=== PATIENT | female | born 1975 | race Caucasian/White ===

== ENCOUNTER → 2020-05-05 | Outpatient (CLI) | payer MEDICAID | END | disposition home or self-care (01) | LOC: COVID19 14:39 | PROVIDERS: ATTEND Internal Medicine | DX: Z20.828 Contact with and (suspected) exposure to other viral communicable diseases (principal) ==

== ENCOUNTER 2021-04-17 15:47 | Emergency (ER) | payer BC ==
[~2021-04-17] VITALS: Ht 170.1 cm; Wt 63.5 kg
== END 2021-04-17 16:34 | disposition home or self-care (01) ==
LOC: ED 15:47
DX: G89.18 Other acute postprocedural pain (principal); Z90.710 Acquired absence of both cervix and uterus

== ENCOUNTER 2021-09-24 15:55 | Emergency (ER) | payer BC ==
[~2021-09-24] VITALS: Wt 63.5 kg
[2021-09-24] MEDS ORDERED: WELLBUTRIN XL150 MG PO (16:19)
[2021-09-24] MEDS ORDERED: LAMICTAL100 MG PO (16:19)
[2021-09-24] MEDS ORDERED: BUSPIRONE10 MG PO (16:19)
== END 2021-09-24 16:44 | disposition home or self-care (01) ==
LOC: ED 15:55
DX: F41.9 Anxiety disorder, unspecified (principal); Z76.0 Encounter for issue of repeat prescription

== ENCOUNTER 2021-11-28 12:17 | Emergency (ER) | payer BC ==
[~2021-11-28] VITALS: Ht 170.1 cm; Wt 62.6 kg
[~2021-11-28 12:17] MED LIST: BUSPIRONE10 MG PO; HYDROCODONE-AC1 EAC1 PO; LAMICTAL100 MG PO; WELLBUTRIN XL150 MG PO
[2021-11-28 13:16] LABS: BASO % 0.3 % (0.0-1.0); EOS # 0.4 10*3/uL (0.0-0.4); EOS % 5.5 % (1.0-4.0); HEMATOCRIT 40.4 % (37.0-47.0); LYMPH # 1.2 10*3/uL (1.3-4.4); LYMPH % 19.5 % (27.0-41.0); MEAN CORPUSCULAR HGB 29.8 pg (27.0-31.0); MEAN CORPUSCULAR HGB CONC 33.9 g/dl (33.0-37.0); MEAN PLATELET VOLUME 9.4 fl (9.6-12.3); MONO # 0.4 10*3/uL (0.1-1.0); MONO % 5.9 % (3.0-9.0); NEUT # 4.3 10*3/uL (2.3-7.9); NEUT % 68.5 % (47.0-73.0); PLATELET COUNT AUTOMATED 222 10*3/uL (130-400); RED BLOOD COUNT 4.59 10*6/uL (4.10-5.10); RED CELL DISTRI WIDTH 11.8 % (0-14.5); WHITE BLOOD COUNT 6.3 10*3/uL (4.8-10.8)
[2021-11-28] MEDS ORDERED: PREMARIN0.625 M1 PO (13:28)
[2021-11-28] MEDS ORDERED: PROPRANOLOL HCL20 MG PO (13:29)
[2021-11-28 13:32] LABS: ALKALINE PHOSPHATASE 92 U/L (45-117); BUN 9 mg/dl (7-24); CHLORIDE 109 mmol/L (98-107); CREATININE 0.71 mg/dL (0.55-1.02); SGOT/AST 21 IU/L (3-35); SGPT/ALT 24 U/L (12-78); SODIUM 140 mmol/L (136-145); TOTAL PROTEIN 6.6 gm/dL (6.4-8.2)
[2021-11-28] MEDS ORDERED: ZOFRAN4 MG PO (16:20)
== END 2021-11-28 16:22 | disposition home or self-care (01) ==
LOC: ED 12:17
PROVIDERS: Emergency Medicine
DX: B34.9 Viral infection, unspecified (principal); Z20.822 Contact with and (suspected) exposure to COVID-19

== ENCOUNTER 2021-11-29 05:53 | Emergency (ER) | payer BC ==
[~2021-11-29 05:53] MED LIST changes: +PREMARIN0.625 M1 PO; +PROPRANOLOL HCL20 MG PO; +ZOFRAN4 MG PO
[2021-11-30] MEDS ORDERED: KETOROLAC10 MG PO (06:27)
[2021-11-30] MEDS ORDERED: VALTREX1000 MG PO (06:27)
[2021-11-30] MEDS ORDERED: PREDNISONE50 MG PO (06:27)
[2021-11-30] MEDS ORDERED: REGLAN5 MG PO (06:27)
[2021-11-30] MEDS ORDERED: SUMATRIPTAN5 MG NAS (21:54)
== END 2021-11-29 10:21 | disposition home or self-care (01) ==
LOC: ED 05:53
DX: B34.9 Viral infection, unspecified (principal)

== ENCOUNTER 2021-11-30 05:33 | Emergency (ER) | payer BC ==
[2021-11-30] MEDS ORDERED: PREDNISONE50 MG PO (06:27)
[2021-11-30] MEDS ORDERED: REGLAN5 MG PO (06:27)
[2021-11-30] MEDS ORDERED: KETOROLAC10 MG PO (06:27)
[2021-11-30] MEDS ORDERED: VALTREX1000 MG PO (06:27)
[2021-11-30 06:54] LABS: BASO % 0.3 % (0.0-1.0); EOS # 0.1 10*3/uL (0.0-0.4); LYMPH # 1.2 10*3/uL (1.3-4.4); LYMPH % 31.2 % (27.0-41.0); MEAN CELL VOLUME 88.1 fl (81.0-99.0); MEAN PLATELET VOLUME 9.5 fl (9.6-12.3); MONO # 0.2 10*3/uL (0.1-1.0); MONO % 5.8 % (3.0-9.0); NEUT # 2.4 10*3/uL (2.3-7.9); NEUT % 59.7 % (47.0-73.0); PLATELET COUNT AUTOMATED 197 10*3/uL (130-400); RED BLOOD COUNT 4.54 10*6/uL (4.10-5.10); RED CELL DISTRI WIDTH 11.4 % (0-14.5)
[2021-11-30 07:09] LABS: ALKALINE PHOSPHATASE 82 U/L (45-117); BUN 9 mg/dl (7-24); CHLORIDE 106 mmol/L (98-107); CREATININE 0.53 mg/dL (0.55-1.02); LIPASE 69 U/L (73-393); POTASSIUM 3.7 mmol/L (3.5-5.1); SGOT/AST 19 IU/L (3-35); SGPT/ALT 20 U/L (12-78); SODIUM 139 mmol/L (136-145); TOTAL PROTEIN 6.5 gm/dL (6.4-8.2)
[2021-11-30] MEDS ORDERED: SUMATRIPTAN5 MG NAS (21:54)
== END 2021-11-30 08:28 | disposition home or self-care (01) ==
LOC: ED 05:33
PROVIDERS: Emergency Medicine
DX: G51.0 Bell's palsy (principal); G43.909 Migraine, unspecified, not intractable, without status migrainosus

== ENCOUNTER 2021-11-30 16:58 | Emergency (ER) | payer BC ==
[~2021-11-30] VITALS: Ht 162.5 cm; Wt 68.0 kg
[~2021-11-30 16:58] MED LIST changes: +KETOROLAC10 MG PO; +PREDNISONE50 MG PO; +REGLAN5 MG PO; +VALTREX1000 MG PO
[2021-11-30] MEDS ORDERED: SUMATRIPTAN5 MG NAS (21:54)
== END 2021-11-30 21:57 | disposition home or self-care (01) ==
LOC: ED 16:58
DX: G43.909 Migraine, unspecified, not intractable, without status migrainosus (principal); G51.0 Bell's palsy; Z79.899 Other long term (current) drug therapy

== ENCOUNTER → 2022-01-03 | Outpatient (CLI) | payer BC ==
[~2022-01-03] MED LIST changes: +SUMATRIPTAN5 MG NAS
== END | disposition home or self-care (01) ==
LOC: US 11-30 08:30 → MAMMO 12-21 13:00
PROVIDERS: ATTEND Family Medicine
DX: N63.24 Unspecified lump in the left breast, lower inner quadrant (principal); R92.2 Inconclusive mammogram; Z98.82 Breast implant status

== ENCOUNTER 2022-02-14 22:00 | Emergency (ER) | payer BC ==
[2022-02-15] MEDS ORDERED: ACYCLOVIR400 MG PO (00:45)
[2022-02-15] MEDS ORDERED: PREDNISONE20 M1 PO (00:45)
[2022-02-15] MEDS ORDERED: CYCLOBENZAPRINE10 MG PO (00:45)
== END 2022-02-15 01:06 | disposition home or self-care (01) ==
LOC: ED 22:00
DX: S06.0X1A Concussion with loss of consciousness of 30 minutes or less, initial encounter (principal); S80.02XA Contusion of left knee, initial encounter; S80.01XA Contusion of right knee, initial encounter; M54.2 Cervicalgia; Z79.899 Other long term (current) drug therapy; Z88.5 Allergy status to narcotic agent; V49.88XA Car occupant (driver) (passenger) injured in other specified transport accidents, initial encounter; Y93.89 Activity, other specified; Y92.413 State road as the place of occurrence of the external cause; Y99.9 Unspecified external cause status

== ENCOUNTER → 2022-03-15 | Outpatient (CLI) | payer BC ==
[~2022-03-15] MED LIST changes: +ACYCLOVIR400 MG PO; +CYCLOBENZAPRINE10 MG PO; +PREDNISONE20 M1 PO
== END | disposition home or self-care (01) ==
LOC: RAD 15:01
PROVIDERS: ATTEND Family Medicine
DX: J18.9 Pneumonia, unspecified organism (principal)

== ENCOUNTER 2022-05-05 10:23 | Emergency (ER) | payer BC ==
[~2022-05-05] VITALS: Ht 170.1 cm; Wt 61.2 kg
[2022-05-05] MEDS ORDERED: CETIRIZINE10 MG PO (10:41)
[2022-05-05] MEDS ORDERED: MIRTAZAPINE15 M2 PO (10:42)
== END 2022-05-05 11:01 | disposition home or self-care (01) ==
LOC: ED 10:23
PROVIDERS: Family Medicine
DX: Z51.81 Encounter for therapeutic drug level monitoring (principal); Z79.899 Other long term (current) drug therapy; Z88.8 Allergy status to other drugs, medicaments and biological substances

== ENCOUNTER 2022-06-17 08:56 | Emergency (ER) | payer BC ==
[~2022-06-17] VITALS: Wt 63.5 kg
[~2022-06-17 08:56] MED LIST changes: +CETIRIZINE10 MG PO; +MIRTAZAPINE15 M2 PO
[2022-06-17] MEDS ORDERED: PREMARIN0.625 M1 PO (10:34)
== END 2022-06-17 11:03 | disposition home or self-care (01) ==
LOC: ED 08:56
DX: Z76.0 Encounter for issue of repeat prescription (principal); Z88.8 Allergy status to other drugs, medicaments and biological substances; Z79.899 Other long term (current) drug therapy

== ENCOUNTER 2022-09-24 02:03 | Emergency (ER) | payer BC ==
[2022-09-24] MEDS ORDERED: AMOX-CLAV 875-1 EACH PO (03:23)
[2022-09-24] MEDS ORDERED: GOOD NEIGHBOR L10 MG PO (03:23)
== END 2022-09-24 03:59 | disposition home or self-care (01) ==
LOC: ED 02:03
DX: H10.9 Unspecified conjunctivitis (principal); J32.9 Chronic sinusitis, unspecified; G43.909 Migraine, unspecified, not intractable, without status migrainosus; F41.9 Anxiety disorder, unspecified; Z88.5 Allergy status to narcotic agent; Z90.710 Acquired absence of both cervix and uterus

== ENCOUNTER → 2023-02-20 | Outpatient (CLI) | payer BC ==
[~2023-02-20] MED LIST changes: +AMOX-CLAV 875-1 EACH PO; +GOOD NEIGHBOR L10 MG PO
== END | disposition home or self-care (01) ==
LOC: RAD 10:46
PROVIDERS: ATTEND Nurse Practitioner Family
DX: R09.81 Nasal congestion (principal); R05.8 Other specified cough; E03.9 Hypothyroidism, unspecified; R53.83 Other fatigue

== ENCOUNTER 2023-02-23 07:11 | Emergency (ER) | payer BC ==
[2023-02-23 08:13] LABS: BASO % 0.3 % (0.0-1.0); EOS # 0.1 10*3/uL (0.0-0.4); EOS % 2.7 % (1.0-4.0); HEMATOCRIT 43.4 % (37.0-47.0); LYMPH # 1.3 10*3/uL (1.3-4.4); LYMPH % 39.5 % (27.0-41.0); MEAN CELL VOLUME 91.6 fl (81.0-99.0); MEAN CORPUSCULAR HGB CONC 33.9 g/dl (33.0-37.0); MEAN PLATELET VOLUME 9.8 fl (9.6-12.3); MONO # 0.2 10*3/uL (0.1-1.0); MONO % 6.5 % (3.0-9.0); NEUT # 1.7 10*3/uL (2.3-7.9); PLATELET COUNT AUTOMATED 144 10*3/uL (130-400); RED BLOOD COUNT 4.74 10*6/uL (4.10-5.10); RED CELL DISTRI WIDTH 12.1 % (0-14.5); WHITE BLOOD COUNT 3.4 10*3/uL (4.8-10.8)
[2023-02-23 08:34] LABS: ALKALINE PHOSPHATASE 63 U/L (46-116); CHLORIDE 109 mmol/L (98-107); POTASSIUM 3.9 mmol/L (3.4-5.1); SGPT/ALT 14 U/L (10-49); TOTAL PROTEIN 6.3 gm/dL (6.0-8.0)
[2023-02-23 08:35] LABS: BUN < 5 mg/dl (9-23)
== END 2023-02-23 10:24 | disposition home or self-care (01) ==
LOC: ED 07:11
PROVIDERS: Internal Medicine
DX: U07.1 COVID-19 (principal); Z88.5 Allergy status to narcotic agent; Z90.710 Acquired absence of both cervix and uterus

== ENCOUNTER 2023-10-23 12:28 | Emergency (ER) | payer BC ==
[~2023-10-23] VITALS: Ht 350.5 cm; Wt 59.0 kg
== END 2023-10-23 14:04 | disposition home or self-care (01) ==
LOC: ED 12:28
DX: R76.11 Nonspecific reaction to tuberculin skin test without active tuberculosis (principal); G43.909 Migraine, unspecified, not intractable, without status migrainosus; Z88.5 Allergy status to narcotic agent; Z79.899 Other long term (current) drug therapy